=== PATIENT | male | born 1950 | race Caucasian/White ===

== ENCOUNTER 2016-08-17 12:37 | Observation (INO) | payer BC ==
[2016-08-17] VITALS (8 sets, daily range): BP systolic 132–207; BP diastolic 65–90; PULSE 71–90; RESP 14–19; TEMP 98–98.4; O2SAT 96–98
[~2016-08-17] VITALS: Ht 182.9 cm; Wt 97.0 kg
--- NOTE | 2016-08-17 13:04 | PD ---
HPI Chief Complaint: Hypertension Time Seen by Provider: 13:04 Travel History International Travel<30 days: No Contact w/Intl Traveler<30days: No Traveled to known affect area: No History of Present Illness HPI 66-year-old male with history of chest congestion and tingling for the past 2 days. Patient is noted his blood pressure be elevated. Patient states he generally feels unwell, but denies shortness of breath, chest pain, nausea, vomiting, or diarrhea. He denies fever or chills. Patient has a history of hypertension currently treated with metoprolol 50 mg twice a day as well as BID. Patient states history of stress test with heart catheterization approximately 10 years ago with no signs of cardiac or area disease. Patient denies other recent changes other than recent dental work with abscess treated yesterday by his dentist. Root canal and post was removed with drainage of abscess beneath. Patient has no known drug allergies. PFSH Past Medical History Cardiovascular Problems: Yes Social History Alcohol Use: Yes Tobacco Use: No Substance Use: No Allergies-Medications (Allergen,Severity, Reaction): Coded Allergies: No Known Allergies (Unverified , 08/17/16) Reported Meds & Prescriptions Reported Meds & Active Scripts Active Reported Xanax (Alprazolam) 0.25 Mg Tab 0.25 Mg PO Q8H PRN Aspirin 81 Mg Chew 81 Mg CHEW DAILY Meloxicam 7.5 Mg Tab 7.5 Mg PO DAILY Ramipril 10 Mg Cap 10 Mg PO BID Metoprolol Tartrate 50 Mg Tab 50 Mg PO BID Review of Systems Except as stated in HPI: all other systems reviewed are Neg General / Constitutional: No: Fever, Chills Eyes: No: Visual changes HENT: No: Headaches Cardiovascular: Positive: Chest Pain or Discomfort (see history present illness.), No: Palpitations, Irregular Rhythm, Tachycardia, Diaphoresis, Syncope, Dyspnea on exertion, Edema, Claudication Respiratory: No: Cough, Shortness of Breath, Wheezing Gastrointestinal: No: Nausea, Vomiting, Diarrhea, Abdominal Pain Genitourinary: No: Dysuria Musculoskeletal: No: Pain Skin: No Rash Neurologic: No: Weakness Psychiatric: No: Depression Endocrine: No: Polydipsia Hematologic/Lymphatic: No: Easy Bruising Physical Exam Narrative GENERAL: Patient appears mildly anxious but no acute distress. SKIN: Warm and dry. Normal color. Normal turgor. No diaphoresis. HEAD: Atraumatic. Normocephalic. EYES: Pupils equal and round. No scleral icterus. No injection or drainage. ENT: No nasal bleeding or discharge. Mucous membranes pink and moist. NECK: Trachea midline. No JVD. CARDIOVASCULAR: Regular rate and rhythm. No murmurs gallops or rubs appreciated. RESPIRATORY: No accessory muscle use. Clear to auscultation. Breath sounds equal bilaterally. MUSCULOSKELETAL: Extremities without clubbing, cyanosis, or edema. No obvious deformities. NEUROLOGICAL: Awake and alert. No obvious cranial nerve deficits. Motor grossly within normal limits. Five out of 5 muscle strength in the arms and legs. Normal speech. PSYCHIATRIC: Appropriate mood and affect; insight and judgment normal. Data Data Last Documented VS Vital Signs Date Time Temp Pulse Resp B/P Pulse Ox O2 Delivery O2 Flow Rate FiO2 08/17/16 13:43 96 08/17/16 13:43 Room Air 08/17/16 13:43 71 16 153/65 08/17/16 12:39 98.1 Orders Electrocardiogram (08/17/16 12:46) Comprehensive Metabolic Panel (08/17/16 13:13) Magnesium (Mg) (08/17/16 13:13) Prothrombin Time / Inr (Pt) (08/17/16 13:13) Act Partial Throm Time (Ptt) (08/17/16 13:13) Troponin I (08/17/16 13:13) Chest, Single Ap (08/17/16 13:13) Ecg Monitoring (08/17/16 13:13) Bilateral Bp Monitoring (08/17/16 13:13) Iv Access Insert/Monitor (08/17/16 13:13) Oximetry (08/17/16 13:13) Oxygen Administration (08/17/16 13:13) Aspirin Chew (Aspirin Chew) (08/17/16 13:15) Nitroglycerin 2% Oint (Nitroglycerin 2% (08/17/16 13:15) Sodium Chloride 0.9% Flush (Ns Flush) (08/17/16 13:15) Hydralazine Inj (Apresoline Inj) (08/17/16 13:15) Complete Blood Count With Diff (08/17/16 13:13) Admit Order (Ed Use Only) (1/26/17 14:29) Labs Laboratory Tests Test 08/17/16 13:26 White Blood Count 6.7 TH/MM3 Red Blood Count 4.87 MIL/MM3 Hemoglobin 16.1 GM/DL Hematocrit 45.8 % Mean Corpuscular Volume 93.9 FL Mean Corpuscular Hemoglobin 33.1 PG Mean Corpuscular Hemoglobin 35.2 % Concent Red Cell Distribution Width 12.5 % Platelet Count 284 TH/MM3 Mean Platelet Volume 7.6 FL Neutrophils (%) (Auto) 68.5 % Lymphocytes (%) (Auto) 20.6 % Monocytes (%) (Auto) 9.1 % Eosinophils (%) (Auto) 1.0 % Basophils (%) (Auto) 0.8 % Neutrophils # (Auto) 4.6 TH/MM3 Lymphocytes # (Auto) 1.4 TH/MM3 Monocytes # (Auto) 0.6 TH/MM3 Eosinophils # (Auto) 0.1 TH/MM3 Basophils # (Auto) 0.1 TH/MM3 CBC Comment DIFF FINAL Differential Comment Prothrombin Time 10.7 SEC Prothromb Time International 1.0 RATIO Ratio Activated Partial 27.5 SEC Thromboplast Time Sodium Level 137 MEQ/L Potassium Level 4.4 MEQ/L Chloride Level 102 MEQ/L Carbon Dioxide Level 24.9 MEQ/L Anion Gap 10 MEQ/L Blood Urea Nitrogen 22 MG/DL Creatinine 1.17 MG/DL Estimat Glomerular Filtration 63 ML/MIN Rate Random Glucose 117 MG/DL Calcium Level 8.9 MG/DL Magnesium Level 2.3 MG/DL Total Bilirubin 0.5 MG/DL Aspartate Amino Transf 19 U/L (AST/SGOT) Alanine Aminotransferase 35 U/L (ALT/SGPT) Alkaline Phosphatase 66 U/L Troponin I LESS THAN 0.02 NG/ML Total Protein 7.4 GM/DL Albumin 4.2 GM/DL [facility] Medical Decision Making Medical Screen Exam Complete: Yes Emergency Medical Condition: Yes Differential Diagnosis Hypertensive crisis. Cardiac syndrome. Non-STEMI. Narrative Course Patient appears medically stable at time of exam. Patient is discussed with Dr. Gomes who also reviewed the EKG. EKG shows normal sinus rhythm with lateral T-wave inversions. Labs ordered including CBC, CMP, cardiac panel, PT PTT and INR. Chest x-ray is ordered. IV access is obtained patient is given 10 mg hydralazine IV per Dr. Gomes. Patient is given 324 mg aspirin by mouth as well as 1 inch nitroglycerin paste topically. 1345 hrs. the patient is reassessed and his blood pressures improved to 153/68. Patient feels improved. Labs are still pending. 1430 hrs. patient's troponin is less than 0.02. Patient will be admitted to the chest pain center for observation and further evaluation. Diagnosis Primary Impression: Hypertension Qualified Code: I10 - Essential hypertension Additional Impression: Chest tightness or pressure Admitting Information Admitting Physician Requests: Observation Condition: Stable José Miguel Rosas Aug 17, 2016 13:04
[2016-08-17] MEDS ORDERED: ASPIRIN 81 MG CHEW TAB PO ONE (13:15)
[2016-08-17] MEDS ORDERED: SODIUM CHLORIDE 0.9% FLUSH 5 ML FLUSH IVF PRN ×2 (13:15→15:30)
[2016-08-17] MEDS ORDERED: hydrALAZINE HCL 20 MG/ML VIAL IV PUSH ONE (13:15)
[2016-08-17] MEDS ORDERED: NITROGLYCERIN 2% OINT 1 GM PACKET TOP ONE (13:15)
[2016-08-17] MEDS ORDERED: MELO7.5T4 PO (13:16)
[2016-08-17] MEDS ORDERED: METO50TA PO (13:16)
[2016-08-17] MEDS ORDERED: RAMI10CA PO (13:16)
[2016-08-17] MEDS ORDERED: ASPI81CH CHEW (13:16)
[2016-08-17] MEDS ORDERED: ALPR.25 PO (13:16)
[2016-08-17 13:38] LABS: AUTOMATED NEUTROPHIL # 4.6 TH/MM3 (1.8-7.7); BASOPHIL # 0.1 TH/MM3 (0-0.2); BASOPHIL % 0.8 % (0.0-2.0); EOSINOPHIL # 0.1 TH/MM3 (0-0.4); HEMATOCRIT 45.8 % (39.0-51.0); HEMO FLAGS DIFF FINAL; LYMPH % 20.6 % (9.0-44.0); LYMPHOCYTE # 1.4 TH/MM3 (1.0-4.8); MEAN CELL VOLUME 93.9 FL (80.0-100.0); MEAN CORPUSCULAR HEMOGLOBIN 33.1 PG (27.0-34.0); MEAN CORPUSCULAR HGB CONC 35.2 % (32.0-36.0); MONO % 9.1 % (0.0-8.0); NEUT % 68.5 % (16.0-70.0); PLATELET COUNT 284 TH/MM3 (150-450); RED BLOOD COUNT 4.87 MIL/MM3 (4.50-5.90); RED CELL DISTRIBUTION WIDTH 12.5 % (11.6-17.2); WHITE BLOOD COUNT 6.7 TH/MM3 (4.0-11.0)
[2016-08-17 13:47] LABS: APTT (PATIENT) 27.5 SEC (24.3-30.1); PROTHROMBIN TIME - PATIENT 10.7 SEC (9.8-11.6)
[2016-08-17 13:56] LABS: ANION GAP 10 MEQ/L (5-15); AST (GOT) 19 U/L (15-37); BICARBONATE 24.9 MEQ/L (21.0-32.0); BLOOD UREA NITROGEN 22 MG/DL (7-18); CHLORIDE 102 MEQ/L (98-107); GLOMERULAR FILTRATION RATE 63 ML/MIN (>89); MAGNESIUM 2.3 MG/DL (1.5-2.5); POTASSIUM 4.4 MEQ/L (3.5-5.1); SODIUM (NA) 137 MEQ/L (136-145)
--- NOTE | 2016-08-17 13:56 | RADRPT ---
EXAM DATE/TIME: 08/17/2016 13:37 [facility] COMPARISON: No previous studies available for comparison. INDICATIONS : Shortness of breath. MEDICAL HISTORY : Hypertension. SURGICAL HISTORY : None. ENCOUNTER: Initial ACUITY: 1 day PAIN SCORE: 0/10 LOCATION: Bilateral chest FINDINGS: A single view of the chest demonstrates the lungs to be symmetrically aerated without evidence of mas s, infiltrate or effusion. The cardiomediastinal contours are unremarkable. Osseous structures are intact. CONCLUSION: 1. No acute cardiopulmonary findings. Koby Bowie MD on August 17, 2016 at 13:54 Board Certified Radiologist. This report was verified electronically.
[2016-08-17 14:01] LABS: ALKALINE PHOSPHATASE 66 U/L (45-117); ALT (GPT) 35 U/L (12-78); TOTAL BILIRUBIN ADULT 0.5 MG/DL (0.2-1.0)
[2016-08-17] MEDS ORDERED: ONDANSETRON HCL 4 MG/2 ML VIAL IV PRN (15:30)
[2016-08-17] MEDS ORDERED: ACETAMINOPHEN/HYDROcodone 325 MG/7.5 MG TAB PO PRN (15:30)
[2016-08-17] MEDS ORDERED: ALPRAZolam 0.25 MG TAB PO PRN (15:30)
[2016-08-17] MEDS ORDERED: amLODIPine BESYLATE 5 MG TAB PO ONE (15:45)
[2016-08-17] MEDS: PANTOPRAZOLE SOD 40 MG DELAYED RELEASE TAB PO SCH (16:26)
[2016-08-17 17:27] LABS: CREATINE KINASE 59 U/L (39-308)
[2016-08-17] MEDS: ACETAMINOPHEN 500 MG CPLT PO PRN ×2 (20:22→23:48)
[2016-08-17] MEDS: SODIUM CHLORIDE 0.9% FLUSH 5 ML FLUSH IVF SCH (20:22)
[2016-08-17] MEDS: RAMIPRIL 5 MG CAP PO SCH (20:25)
[2016-08-17 20:44] LABS: CREATINE KINASE 55 U/L (39-308)
[2016-08-17] MEDS ORDERED: METOPROLOL TARTRATE 50 MG TAB PO SCH (21:00)
[2016-08-18] VITALS: BP_SYST 130; BP_SYST 132; BP_DIAS 68; PULSE 67; RESP 18; TEMP 98.7; O2SAT 97
[2016-08-18 00:29] VITALS: PULSE 74
[2016-08-18 04:21] VITALS: PULSE 87
[2016-08-18 04:58] VITALS: BP 127/60; PULSE 72; RESP 19; TEMP 97.7; O2SAT 100
[2016-08-18] MEDS: ACETAMINOPHEN 500 MG CPLT PO PRN (05:03)
[2016-08-18 07:12] VITALS: BP 156/70; PULSE 77; RESP 20; O2SAT 95
[2016-08-18] MEDS ORDERED: AMLO5TAB2 PO (07:12)
--- NOTE | 2016-08-18 07:12 | HHI.DCPOC ---
Discharge Care Plan Diagnosis: (1) Hypertension Goals to Promote Your Health * To prevent worsening of your condition and complications * To maintain your health at the optimal level Directions to Meet Your Goals Take your medications as prescribed Follow your dietary instruction Follow activity as directed Keep your appointments as scheduled Take your immunizations and boosters as scheduled If your symptoms worsen call your PCP, if no PCP go to Urgent Care Center or Emergency Room Smoking is Dangerous to Your Health. Avoid second hand smoke Call the 24-hour hour crisis hotline for domestic abuse at Zafar Farr Aug 18, 2016 07:12
[2016-08-18] MEDS ORDERED: MELOXICAM 7.5 MG TAB PO SCH (09:00)
[2016-08-18] MEDS ORDERED: ASPIRIN 325 MG TAB PO SCH (09:00)
[2016-08-18] MEDS: SODIUM CHLORIDE 0.9% FLUSH 5 ML FLUSH IVF SCH (09:42)
[2016-08-18] MEDS: RAMIPRIL 5 MG CAP PO SCH (09:42)
[2016-08-18] MEDS: PANTOPRAZOLE SOD 40 MG DELAYED RELEASE TAB PO SCH (09:42)
--- NOTE | 2016-08-18 10:28 | MH ---
cc: OSIEL KEMP MD DATE OF ADMISSION 08/17/2016 CHIEF COMPLAINT Hypertension. HISTORY OF PRESENT ILLNESS This is a 66 year old male who has history of hypertension that presented to the ED complaining of elevated blood pressure. The patient states he can always tell when his blood pressure is high. He states that he had an odd sensation across his shoulders and a pressure in the back of his head and a little bit of dizziness. He states when he has these type of symptoms it usually means his blood pressures is high. He came to the ER and it was elevated. He states he has been dealing with these sensations the last three or four days. He has no shortness of breath. No nausea or diaphoresis. Denies any type of chest discomfort. He states he has no heart disease. He states he had an attempted stress test 10 or [address] Saleh but was not able to complete it secondary to his back issues and subsequently ended up having heart catheterization. He states that he was told that his coronary arteries were normal at that time. PAST MEDICAL HISTORY 1. Hypertension, 2. Chronic back pain, 3. Renal cell carcinoma with partial right nephrectomy in 2013 secondary to that. States there has been no recurrence. He denies hyperlipidemia, diabetes, CAD. FAMILY HISTORY Denies any history of CAD. SOCIAL HISTORY The patient was smoking cigarettes a couple years ago. Prior to that he smoked an average of three cigars a day for 10 years and prior to that he smoked about a pack and a half of cigarettes a day for 25 years. He also averages three cocktails a day. He does smoke marijuana occasionally, last used was about two weeks ago. PAST SURGICAL HISTORY 1. Bilateral hernia repair, 2. Partial right nephrectomy secondary to renal cell carcinoma 3. Heart catheterization without intervention. 4. Left hip replacement, 5. Tonsillectomy ALLERGIES No known drug allergies. MEDICATIONS 1. Metoprolol tartrate 50 mg twice daily 2. Ramipril 10 mg twice daily. 3. Aspirin 81 mg daily. 4. Meloxicam 7.5 mg daily. 5. Xanax 0.25 mg q 6 hrs p.r.n. anxiety which he states he rarely takes. REVIEW OF SYSTEMS GENERAL: Denies fevers or chills. Denies recent illnesses. HEENT: He does complain of discomfort in the back of his head. He states he always gets it when his blood pressure elevates. Denies visual change. Denies earache, sore throat, difficulty spine. CARDIOVASCULAR: Denies chest discomforts. Denies sensation of heart beating rapidly or irregularly. Denies syncope. Denies diaphoresis. RESPIRATORY: Denies shortness of breath or inspirational chest discomfort. Denies coughing, wheezing or hemoptysis. GI: Denies nausea, vomiting, diarrhea, abdominal pain or blood in stool. MUSCULOSKELETAL: Denies joint pain or edema. Denies calf pain or edema. Does complain of chronic back pain. NEUROMUSCULAR: He does complain of headache as mentioned above. He also felt a little dizzy. Denies numbness, tingling in extremities. ENDOCRINE: Denies polyuria or polydipsia: HEMATOLOGIC: Denies bruising. SKIN: Denies rash or itching. PHYSICAL EXAMINATION VITAL SIGNS: In the emergency department initially included a blood pressure ___/90, heart rate 75, respiration 14, pulse oximetry 98% on room air and he was afebrile. Most recent vital signs include blood pressure 165/78, heart rate was 90, respirations 18, pulse oximetry 97% on room air and he is afebrile. GENERAL: The patient is seen in the examination room in no apparent stress. He is pleasant. He speaks in clear and complete sentences. HEENT: Head is atraumatic, normocephalic. NECK: Supple without lymphadenopathy and trachea is midline. No JVD or carotid bruits. CARDIOVASCULAR: Regular rate and rhythm without murmur, gallop or rub. LUNGS: Clear to auscultation bilaterally. No wheezing, rales or rhonchi. No reproducible chest wall discomfort. No use of accessory muscles. GI: Abdomen is nontender, nondistended and bowel sounds are normal. No guarding or rebound. No obvious pulsatile mass or bruit. No CVA tenderness. Strong femoral pulses bilaterally. MUSCULOSKELETAL: The patient is moving upper and lower extremities freely. No joint tenderness or edema. No calf tenderness or edema, no Homans' sign. Strong pulses in upper and lower extremities. NEUROVASCULAR: The patient is alert and oriented. Cranial II-XII grossly intact. No focal deficits and speech is clear. SKIN: No rash and turgor is normal. LABORATORY DATA CBC is unremarkable. Coagulation studies unremarkable. Complete metabolic panel has glucose mildly elevated at 117. GFR decreased or low at 63. BUN mild at 20. First of cardiac enzymes normal. IMAGING STUDIES Single view chest x-ray read by radiologist as no acute cardiopulmonary findings. CARDIOLOGY STUDIES EKG - initial EKG is sinus rhythm with nonspecific lateral ST-T changes. ASSESSMENT 1. Hypertension. The patient will have serial cardiac enzymes and EKGs for ruling out purposes. He has been seen by Dr. Osiel Kemp of cardiology in the chest pain center. We will hold his metoprolol tartrate and start Amlodipine and continue to see how he does and also continue his ramipril. If his blood pressure is better overnight, we will discharge him with the same medications and have him follow up with his primary care physician. The patient has requested to follow up with Dr. Kemp also to help with his blood pressure management and he certainly can do that as well. The patient is stable at this time. He is agreeable to this plan. Dictated by USAMA Walter MD DALY Ornelas/ /4:56 PM /10:26 AM
--- NOTE | 2016-08-18 15:20 | EKG ---
Date Performed: 08/17/2016 Time Performed: 19:54:16 PTAGE: 66 years EKG: Sinus rhythm NONSPECIFIC ST & T-WAVE ABNORMALITY BORDERLINE ECG PREVIOUS TRACING : 08/17/2016 16.37 Since previous tracing, no significant change noted DOCTOR: Osiel Arteaga Interpretating Date/Time 08/18/2016 15:18:58
--- NOTE | 2016-08-18 15:20 | EKG ---
Date Performed: 08/17/2016 Time Performed: 16:37:12 PTAGE: 66 years EKG: Sinus rhythm NONSPECIFIC ST & T-WAVE ABNORMALITY BORDERLINE ECG PREVIOUS TRACING : 08/17/2016 12.52 Since previous tracing, no significant change noted DOCTOR: Osiel Arteaga Interpretating Date/Time 08/18/2016 15:19:44
--- NOTE | 2016-08-18 15:22 | EKG ---
Date Performed: 08/17/2016 Time Performed: 12:50:06 PTAGE: 66 years EKG: Sinus rhythm ST DEVIATION AND MODERATE T-WAVE ABNORMALITY, CONSIDER LATERAL ISCHEMIA ABNORMAL ECG NO PREVIOUS TRACING DOCTOR: Osiel Arteaga Interpretating Date/Time 09/26/2016 07:37:31
== END 2016-08-18 10:31 | disposition home or self-care (01) ==
LOC: NEPC 12:37 → NEDA 14:32 → NEPGCP 16:08
PROVIDERS: ADMIT Internal Medicine Cardiovascular Disease; ATTEND Internal Medicine Cardiovascular Disease
DX: R07.9 Chest pain, unspecified (principal); I10 Essential (primary) hypertension; R94.31 Abnormal electrocardiogram [ECG] [EKG]; C64.1 Malignant neoplasm of right kidney, except renal pelvis; Z90.5 Acquired absence of kidney; Z87.891 Personal history of nicotine dependence; Z96.642 Presence of left artificial hip joint
CPT/HCPCS: 71010; 80053; 82550; 83735; 84484; 85025; 85610; 85730; 93005; 96374; 99285; G0378; J0360

== ENCOUNTER 2017-01-05 06:20 | Observation (INO) | payer BC ==
[2017-01-05] VITALS (10 sets, daily range): BP systolic 132–203; BP diastolic 67–99; PULSE 85–119; RESP 16–20; TEMP 98–98.2; O2SAT 96–100
[~2017-01-05] VITALS: Ht 182.9 cm; Wt 97.0 kg
[~2017-01-05 06:20] MED LIST: ALPR.25 PO; AMLO5TAB2 PO; ASPI81CH CHEW; MELO7.5T4 PO; RAMI10CA PO
[2017-01-05] MEDS ORDERED: MORPHINE SULFATE 4 MG/ML INJ IV PUSH ONE (07:00)
[2017-01-05] MEDS ORDERED: SODIUM CHLORIDE 0.9% FLUSH 10 ML FLUSH IVF PRN (07:00)
[2017-01-05] MEDS ORDERED: SODIUM CHLORID 0.9% 500 ML INJ 500 ML IV ONE (07:00)
[2017-01-05] MEDS ORDERED: ASPIRIN 325 MG TAB PO ONE (07:00)
--- NOTE | 2017-01-05 07:00 | PD ---
HPI Chief Complaint: Respiratory Symptoms Time Seen by Provider: 06:50 Travel History International Travel<30 days: No Contact w/Intl Traveler<30days: No Traveled to known affect area: No History of Present Illness HPI The patient 66 years old. He arrives complaining of shortness of breath and mild chest tightness. He describes a sensation of an elevated resting pulse. He describes a "fluttering" sensation in the chest. He has a history of hypertension. He denies diabetes and hyperlipidemia. He quit smoking tobacco 2 years ago. He has no family history of coronary artery disease. He notes that after lunch in the afternoons while he works and is discharged be becomes short of breath and this leads to a sensation of mild chest tightness. He said no fever or cough. There is no pleuritic chest pain. Last night he ate a 14 ounce rib eye steak and reports severe belching last night and this morning. He follows with Dr Arteaga of cardiology. [facility] Past Medical History Arthritis: Yes Anxiety: Yes Cardiac Catheterization: Yes Cardiovascular Problems: Yes High Cholesterol: No Congestive Heart Failure: No Diabetes: No Hypertension: Yes Influenza Vaccination: No Past Surgical History Abdominal Surgery: Yes (HERNIA) Coronary Artery Bypass Graft: No Genitourinary Surgery: Yes (PARTIAL KIDNEY REMOVAL) Tonsillectomy: Yes Social History Alcohol Use: Yes (DAILY 3 DRINKS) Tobacco Use: No Substance Use: No Allergies-Medications (Allergen,Severity, Reaction): Coded Allergies: No Known Allergies (Unverified , 08/17/16) Reported Meds & Prescriptions Reported Meds & Active Scripts Active Amlodipine (Amlodipine Besylate) 5 Mg Tab 5 Mg PO DAILY Reported Aspirin 81 Mg Chew 81 Mg CHEW DAILY Meloxicam 7.5 Mg Tab 7.5 Mg PO DAILY Ramipril 10 Mg Cap 10 Mg PO BID Review of Systems Except as stated in HPI: all other systems reviewed are Neg General / Constitutional: No: Fever Physical Exam Narrative GENERAL: 66 yo M, WNWD, NAD SKIN: Warm and dry. HEAD: Atraumatic. Normocephalic. EYES: Pupils equal and round. No scleral icterus. No injection or drainage. ENT: No nasal bleeding or discharge. Mucous membranes pink and moist. NECK: Trachea midline. No JVD. CARDIOVASCULAR: Regular rate and rhythm. RESPIRATORY: No accessory muscle use. Clear to auscultation. Breath sounds equal bilaterally. GASTROINTESTINAL: Abdomen soft, non-tender, nondistended. Hepatic and splenic margins not palpable. MUSCULOSKELETAL: Extremities without clubbing, cyanosis, or edema. No obvious deformities. NEUROLOGICAL: Awake and alert. No obvious cranial nerve deficits. Motor grossly within normal limits. Five out of 5 muscle strength in the arms and legs. Normal speech. PSYCHIATRIC: Appropriate mood and affect; insight and judgment normal. Data Data Last Documented VS Vital Signs Date Time Temp Pulse Resp B/P Pulse Ox O2 Delivery O2 Flow Rate FiO2 01/05/17 06:36 114 16 203/91 99 Room Air 01/05/17 06:25 98.2 VS reviewed Orders Electrocardiogram (01/05/17 06:50) Basic Metabolic Panel (Bmp) (01/05/17 06:50) Ckmb (Isoenzyme) Profile (01/05/17 06:50) Complete Blood Count With Diff (01/05/17 06:50) Magnesium (Mg) (01/05/17 06:50) Prothrombin Time / Inr (Pt) (01/05/17 06:50) Act Partial Throm Time (Ptt) (01/05/17 06:50) Troponin I (01/05/17 06:50) Chest, Single Ap (01/05/17 06:50) Ecg Monitoring (01/05/17 06:50) Bilateral Bp Monitoring (01/05/17 06:50) Iv Access Insert/Monitor (01/05/17 06:50) Oximetry (01/05/17 06:50) Oxygen Administration (01/05/17 06:50) Aspirin (Aspirin) (01/05/17 07:00) Morphine Inj (Morphine Inj) (01/05/17 07:00) Sodium Chloride 0.9% Flush (Ns Flush) (01/05/17 07:00) Nitroglycerin 0.4 Mg Q5m X3 (01/05/17 07:00) Metoprolol 5 Mg Ivs Q5m X3 (01/05/17 07:00) Sodium Chlorid 0.9% 500 Ml Inj (Ns 500 M (01/05/17 07:00) MDM Medical Decision Making Medical Screen Exam Complete: Yes Emergency Medical Condition: Yes Medical Record Reviewed: Yes Differential Diagnosis NSTEMI, unstable angina, coronary vasospasm, PE, PTX, aortic dissection, pericarditis, myocarditis, endocarditis, PNA, esophageal disease, aneurysm, musculoskeletal etiologies, anxiety, cocaine/sympathomimetic abuse Narrative Course EKG reveals a sinus rhythm of 104, ST changes are noted in the lateral precordial leads; TWI in I and aVL appear new Chest pain labs ordered at time of dictation. d/w oncoming provider at 700AM. Koby Underwood MD Jan 05, 2017 07:00
[2017-01-05] MEDS: NITROGLYCERIN 0.4 MG SL 25 TABS/BTL SL SCH ×2 (07:05→07:10)
[2017-01-05] MEDS: METOPROLOL TARTRATE 5 MG/5 ML VIAL IVS SCH ×3 (07:05→07:10)
[2017-01-05 07:10] LABS: AUTOMATED NEUTROPHIL # 5.2 TH/MM3 (1.8-7.7); BASOPHIL % 0.5 % (0.0-2.0); EOSINOPHIL # 0.1 TH/MM3 (0-0.4); EOSINOPHIL % 1.4 % (0.0-4.0); HEMATOCRIT 45.8 % (39.0-51.0); HEMO FLAGS DIFF FINAL; LYMPH % 21.9 % (9.0-44.0); LYMPHOCYTE # 1.7 TH/MM3 (1.0-4.8); MEAN CELL VOLUME 93.1 FL (80.0-100.0); MEAN CORPUSCULAR HEMOGLOBIN 32.6 PG (27.0-34.0); NEUT % 67.2 % (16.0-70.0); PLATELET COUNT 276 TH/MM3 (150-450); RED BLOOD COUNT 4.92 MIL/MM3 (4.50-5.90); RED CELL DISTRIBUTION WIDTH 12.3 % (11.6-17.2); WHITE BLOOD COUNT 7.7 TH/MM3 (4.0-11.0)
[2017-01-05 07:14] LABS: APTT (PATIENT) 27.7 SEC (24.3-30.1); PROTHROMBIN TIME - PATIENT 10.5 SEC (9.8-11.6)
--- NOTE | 2017-01-05 07:23 | RADRPT ---
EXAM DATE/TIME: 01/05/2017 07:21 [facility] COMPARISON: CHEST SINGLE AP, August 17, 2016, 13:37. INDICATIONS : Chest pain, short of breath. MEDICAL HISTORY : Hypertension. SURGICAL HISTORY : None. ENCOUNTER: Initial ACUITY: 1 day PAIN SCORE: 5/10 LOCATION: Bilateral chest FINDINGS: A single view of the chest demonstrates the lungs to be symmetrically aerated without evidence of mas s, infiltrate or effusion. The cardiomediastinal contours are unremarkable. Osseous structures are intact. CONCLUSION: 1. No acute cardiopulmonary disease. Andrei Mata MD on January 05, 2017 at 7:20 Board Certified Radiologist. This report was verified electronically.
[2017-01-05 07:29] LABS: ANION GAP 8 MEQ/L (5-15); BICARBONATE 24.5 MEQ/L (21.0-32.0); BLOOD UREA NITROGEN 19 MG/DL (7-18); CHLORIDE 105 MEQ/L (98-107); GLOMERULAR FILTRATION RATE 70 ML/MIN (>89); MAGNESIUM 2.4 MG/DL (1.5-2.5); POTASSIUM 3.7 MEQ/L (3.5-5.1); SODIUM (NA) 137 MEQ/L (136-145)
[2017-01-05 07:34] LABS: CREATINE KINASE 85 U/L (39-308)
--- NOTE | 2017-01-05 09:39 | PD ---
Physical Exam Date Seen by Provider: Jan 05, 2017 Time Seen by Provider: 09:37 Narrative 66-year-old male came to the emergency room with history of ongoing issue but progressively worsening chest tightness along with shortness of breath and fluctuating blood pressure. Patient was seen by the previous ER physician. Please refer to his notes for history and physical. I spoke with the patient and his at length. They are extremely concerned about the symptoms. Patient says that he is usually healthy and has never had issues with his blood pressure mood but recently he has noticed that the symptoms have been very incapacitating. He has never had a stress test. Patient has been smoker for a very long time but quit 2 years ago. His blood pressure has been fluctuating in spite of being on medications. Blood test results were back and within normal limit. I added a d-dimer to rule out any PE since patient has done some long distance travel recently as well as history in the past for renal cell carcinoma. However d-dimer was within normal range. At this point I have offered them to be admitted to chest pain center and at the highway patrol officer's discretion a stress test. They're highly agreeable to that plan. Patient does seem quite anxious as well. Data Data Last Documented VS Vital Signs Date Time Temp Pulse Resp B/P Pulse Ox O2 Delivery O2 Flow Rate FiO2 01/05/17 08:55 89 18 163/75 97 Room Air 01/05/17 06:25 98.2 Orders Electrocardiogram (01/05/17 06:50) Basic Metabolic Panel (Bmp) (01/05/17 06:50) Ckmb (Isoenzyme) Profile (01/05/17 06:50) Complete Blood Count With Diff (01/05/17 06:50) Magnesium (Mg) (01/05/17 06:50) Prothrombin Time / Inr (Pt) (01/05/17 06:50) Act Partial Throm Time (Ptt) (01/05/17 06:50) Troponin I (01/05/17 06:50) Chest, Single Ap (01/05/17 06:50) Ecg Monitoring (01/05/17 06:50) Bilateral Bp Monitoring (01/05/17 06:50) Iv Access Insert/Monitor (01/05/17 06:50) Oximetry (01/05/17 06:50) Oxygen Administration (01/05/17 06:50) Aspirin (Aspirin) (01/05/17 07:00) Morphine Inj (Morphine Inj) (01/05/17 07:00) Sodium Chloride 0.9% Flush (Ns Flush) (01/05/17 07:00) Nitroglycerin Sl (Nitrostat Sl) (01/05/17 07:00) Metoprolol Tartrate Inj (Lopressor Inj) (01/05/17 07:00) Sodium Chlorid 0.9% 500 Ml Inj (Ns 500 M (01/05/17 07:00) D-Dimer (01/05/17 08:32) Admit Order (Ed Use Only) (01/05/17 09:34) Labs Laboratory Tests Test 01/05/17 06:40 White Blood Count 7.7 TH/MM3 Red Blood Count 4.92 MIL/MM3 Hemoglobin 16.0 GM/DL Hematocrit 45.8 % Mean Corpuscular Volume 93.1 FL Mean Corpuscular Hemoglobin 32.6 PG Mean Corpuscular Hemoglobin 35.0 % Concent Red Cell Distribution Width 12.3 % Platelet Count 276 TH/MM3 Mean Platelet Volume 7.7 FL Neutrophils (%) (Auto) 67.2 % Lymphocytes (%) (Auto) 21.9 % Monocytes (%) (Auto) 9.0 % Eosinophils (%) (Auto) 1.4 % Basophils (%) (Auto) 0.5 % Neutrophils # (Auto) 5.2 TH/MM3 Lymphocytes # (Auto) 1.7 TH/MM3 Monocytes # (Auto) 0.7 TH/MM3 Eosinophils # (Auto) 0.1 TH/MM3 Basophils # (Auto) 0.0 TH/MM3 CBC Comment DIFF FINAL Differential Comment Prothrombin Time 10.5 SEC Prothromb Time International 1.0 RATIO Ratio Activated Partial 27.7 SEC Thromboplast Time D-Dimer Quantitative (PE/DVT) 0.45 MG/L FEU Sodium Level 137 MEQ/L Potassium Level 3.7 MEQ/L Chloride Level 105 MEQ/L Carbon Dioxide Level 24.5 MEQ/L Anion Gap 8 MEQ/L Blood Urea Nitrogen 19 MG/DL Creatinine 1.07 MG/DL Estimat Glomerular Filtration 70 ML/MIN Rate Random Glucose 142 MG/DL Calcium Level 9.0 MG/DL Magnesium Level 2.4 MG/DL Total Creatine Kinase 85 U/L Troponin I LESS THAN 0.02 NG/ML MDM Supervised Visit with TUSHAR: No Diagnosis Primary Impression: Chest pain Qualified Code: R07.9 - Chest pain, unspecified type Additional Impression: Palpitation Admitting Information Admitting Physician Requests: Observation Dennys Huggins MD Jan 05, 2017 09:39
[2017-01-05] MEDS ORDERED: NITROGLYCERIN 0.4 MG SL 25 TABS/BTL SL PRN (10:00)
[2017-01-05] MEDS ORDERED: ONDANSETRON HCL 4 MG/2 ML VIAL IV PRN (10:00)
[2017-01-05] MEDS ORDERED: SODIUM CHLORIDE 0.9% FLUSH 10 ML FLUSH IV FLUSH PRN (10:00)
[2017-01-05] MEDS ORDERED: ACETAMINOPHEN 500 MG CPLT PO PRN (10:00)
[2017-01-05 10:59] LABS: CREATINE KINASE 79 U/L (39-308)
[2017-01-05] MEDS ORDERED: ALPRAZolam 0.5 MG TAB PO ONE (11:00)
--- NOTE | 2017-01-05 13:16 | HHI.HP ---
[facility] Primary Care Physician Inna Yeager M.D. Chief Complaint Chest tightness History of Present Illness 66-year-old male with history of hypertension, renal cancer, chronic neck pain, and arthritis presents to emergency room for further evaluation of chest tightness. Onset 34 weeks. States every morning he wakes up feeling fine but by the afternoon develop chest tightness and states "I don't feel like myself." Denies any chest pain or discomfort. Once chest tightness begins duration last into the evening. No associated symptoms of nausea, vomiting, or diaphoresis. No radiation. No known precipitating factors although states "I feel I cannot manage stress like I used to." No known precipitating factors. Reports fluctuating blood pressure and heart rate since Sunday. He has been taking a blood pressure and pulse log over the last few weeks. Highest reported occurred on Sunday with reports of BP 170/90 and heart rate 101. Review of Systems General: No fatigue,weakness, fever, chills, recent illness, or change in appetite HEENT: No LOVE, no vision changes, no nasal congestion or drainage, no dysphasia CV: As stated above. Denies any current chest tightness. No CP, pressure, palpitations, intermittent leg pain, dizziness RESP: No SOB, cough, wheeze, hemoptysis, asthma, COPD, or recent URI. GI: No nausea, vomiting, bowel changes, diarrhea, constipation. No unintentional weight gain or weight loss : No dysuria, urgency, frequency, or hematuria EXT: No lower leg edema, no paraesthesias MS: No discomfort or change in ROM NEURO: No change in memory, difficulty with balance, LOC, motor/sensory deficits PSYCH: Endorses he no longer tolerates stress as he used to. Feels all of his symptoms may be related to stress, although states he does not feel he has a stressful job or lifestyle. Does endorse his adds to his daily stress. No depression or suicidal ideation. SKIN: No rashes, no concerning lesions Past Family Social History Allergies: Coded Allergies: Morphine (Verified Allergy, Unknown, 01/05/17) Past Medical History Renal cancer, chronic neck and back pain, arthritis, hypertension Past Surgical History Partial nephrectomy, inguinal hernia repair, tonsillectomy Reported Medications Active Amlodipine (Amlodipine Besylate) 5 Mg Tab 5 Mg PO DAILY Aspirin 81 Mg Chew 81 Mg CHEW DAILY Meloxicam 7.5 Mg Tab 7.5 Mg PO DAILY Ramipril 10 Mg Cap 10 Mg PO BID Active Ordered Medications Current Medications Medications (Trade) Dose Ordered Sig/Sylwia Route Start Time Stop Time Status Last Admin (Tylenol) 500 mg Q4H PRN PO 01/05/17 10:00 (Zofran Inj) 4 mg Q6H PRN IV 01/05/17 10:00 (Nitrostat Sl) 0.4 mg Q5M PRN SL 01/05/17 10:00 (Aspirin) 325 mg DAILY PO 01/06/17 09:00 (Xanax) 0.5 mg ONCE ONCE PO 01/05/17 11:00 01/05/17 11:01 Family History Noncontributory for early onset cardiovascular disease. Social History Known hypertension. No known diabetes or hyperlipidemia. Quit smoking September 2014prior to quitting smoking 1 pack daily for most of his adult life. Endorses 45 alcohol drinks nightly. Occasionally will smoke marijuana. States he has acted however does not perform purposeful cardiovascular exercise. Past cardiac testing No recent stress testing. 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 Cardiac Catheterization at age 52. Was told his coronary arteries were all "completely normal." Physical Exam Vital Signs Vital Signs Date Time Temp Pulse Resp B/P Pulse Ox O2 Delivery O2 Flow Rate FiO2 01/05/17 11:34 98.0 85 18 162/76 96 01/05/17 11:03 92 18 162/72 99 Room Air 01/05/17 09:52 97 01/05/17 08:55 89 18 163/75 97 Room Air 01/05/17 08:02 85 18 148/67 97 Room Air 01/05/17 06:36 114 16 203/91 99 Room Air 01/05/17 06:25 98.2 119 18 140/99 100 Room Air Physical Exam GENERAL: Alert WN, WD, NAD, male HEAD: NC, AT EYES: Sclera clear, conjunctiva without injection, pupils equal and round ENT: Mucous membranes pink and moist NECK: Supple, no masses, trachea midline CV: RRR, without murmur, rub, gallop, no JVD, S1-S2 no S3-S4. RESP: Clear lungs throughout bilateral, no crackles, wheeze, rhonchi, symmetrical chest rise, nonlabored, able to speak in full sentences ABD: Soft, NT, ND, no masses, positive bowel tones BACK: No CVAT, no scoliosis EXT: Pulses +24, no dependent edema MS: Normal tone 4 extremities, nontender, no obvious deformities, full range of motion NEURO: CN II through CN XII grossly intact, motor strength 5/5, gait WNL PSYCH: A+O 3, flat affect, appropriate speech, appropriate mood and affect, insight and judgment SKIN: Normal turgor, normal texture, no lesions, no rashes, brisk cap refill, even hair distribution Laboratory Laboratory Tests Test 01/05/17 01/05/17 06:40 10:03 White Blood Count 7.7 Red Blood Count 4.92 Hemoglobin 16.0 Hematocrit 45.8 Mean Corpuscular Volume 93.1 Mean Corpuscular Hemoglobin 32.6 Mean Corpuscular Hemoglobin 35.0 Concent Red Cell Distribution Width 12.3 Platelet Count 276 Mean Platelet Volume 7.7 Neutrophils (%) (Auto) 67.2 Lymphocytes (%) (Auto) 21.9 Monocytes (%) (Auto) 9.0 Eosinophils (%) (Auto) 1.4 Basophils (%) (Auto) 0.5 Neutrophils # (Auto) 5.2 Lymphocytes # (Auto) 1.7 Monocytes # (Auto) 0.7 Eosinophils # (Auto) 0.1 Basophils # (Auto) 0.0 CBC Comment DIFF FINAL Differential Comment Prothrombin Time 10.5 Prothromb Time International 1.0 Ratio Activated Partial 27.7 Thromboplast Time D-Dimer Quantitative (PE/DVT) 0.45 Sodium Level 137 Potassium Level 3.7 Chloride Level 105 Carbon Dioxide Level 24.5 Anion Gap 8 Blood Urea Nitrogen 19 Creatinine 1.07 Estimat Glomerular Filtration 70 Rate Random Glucose 142 Calcium Level 9.0 Magnesium Level 2.4 Total Creatine Kinase 85 79 Troponin I LESS THAN 0.02 LESS THAN 0.02 Result Diagram: 01/05/17 0640 01/05/17 0640 Imaging Last Impressions Chest X-Ray 01/05/17 0650 Signed Impressions: Service Date/Time: Thursday, January 05, 2017 07:21 - CONCLUSION: 1. No acute cardiopulmonary disease. Andrei Mata MD Course EKG First EKG normal sinus rhythm, ST changes leads V4 through V6 Second EKG normal sinus rhythm, nonspecific T-wave changes Third EKG Assessment and Plan Assessment and Plan #1 Chest tightness-admitted to chest pain center. Will rule out with 3 sets of EKGs and cardiac enzymes prior to proceeding with Flor scan. Will monitor patient's heart rate and blood pressure overnight with plans for discharge in a.m. Patient agreeable to plan of care. Instructed to follow up with Dr. Arteaga for outpatient Holter monitor. #2 Hypertension-continue to monitor, continue ramipril and amlodipine #3 Anxiety-continue xanax 0.5mg given in ER every 6 hours when necessary. Encouraged him to speak with his PCP regarding his reported anxiety and concern over handling daily stressors. #4 Arthritiscontinue meloxicam Katey Powell Jan 05, 2017 13:16
[2017-01-05 14:16] LABS: CREATINE KINASE 73 U/L (39-308)
--- NOTE | 2017-01-05 14:20 | EKG ---
Date Performed: 01/05/2017 Time Performed: 13:19:58 PTAGE: 66 years EKG: Sinus rhythm NONSPECIFIC ST & T-WAVE ABNORMALITY BORDERLINE ECG PREVIOUS TRACING : 01/05/2017 10.01 Since previous tracing, ST changes ar emore prominent DOCTOR: Osiel Arteaga Interpretating Date/Time 01/05/2017 14:19:10
--- NOTE | 2017-01-05 14:22 | EKG ---
Date Performed: 01/05/2017 Time Performed: 10:01:31 PTAGE: 66 years EKG: Sinus rhythm NONSPECIFIC T-WAVE ABNORMALITY BORDERLINE ECG PREVIOUS TRACING : 01/05/2017 06.40 Since previous tracing, T wave inversion now present latera lly DOCTOR: Osiel Arteaga Interpretating Date/Time 01/05/2017 14:20:06
[2017-01-05] MEDS ORDERED: REGADENOSON INJ 0.4 MG/5 ML SYR ONE (16:15)
--- NOTE | 2017-01-05 18:04 | RADRPT ---
EXAM DATE/TIME: 01/05/2017 15:51 [facility] COMPARISON: CHEST SINGLE AP, January 05, 2017, 7:21. INDICATIONS : Chest pain with dyspnea. Angina. DOSE: 25.4 mCi Tc99m Myoview at stress. 8.5 mCi Tc99m Myoview at rest. 0.4 mg Lexiscan STRESS SYMPTOMS: Chest pain and dyspnea. EJECTION FRACTION: 67% MEDICAL HISTORY : Hypertension. SURGICAL HISTORY : Tonsillectomy. Hernia and partial kidney removal. ENCOUNTER: Initial ACUITY: 1 day PAIN SCALE: 5/10 LOCATION: Substernal chest TECHNIQUE: The patient underwent pharmacologic stress with infusion of prescribed dose. Continuous ECG tracing was monitored during stress. Gated SPECT imaging was performed after stress and conventional SPECT i maging was performed at rest. The examination was performed on a SPECT/CT scanner, both attenuation and non-corrected datasets were reviewed. FINDINGS: DISTRIBUTION: The maximum perfused segment at stress is in the lateral wall. PERFUSION STUDY: The pattern of perfusion at stress is within normal limits. GATED STUDY: There is intact wall motion and thickening without hypokinetic or dyskinetic segments. CONCLUSION: No reversible perfusion defects. No focal wall motion abnormalities. RISK CATEGORY: 1- Low Risk Fiasal Meneses MD on January 05, 2017 at 18:00 Board Certified Radiologist. This report was verified electronically.
[2017-01-05] MEDS ORDERED: ALPRAZolam 0.5 MG TAB PO PRN (18:45)
[2017-01-05] MEDS: RAMIPRIL 5 MG CAP PO SCH (20:48)
[2017-01-05] MEDS: SODIUM CHLORIDE 0.9% FLUSH 10 ML FLUSH IV FLUSH SCH (20:48)
--- NOTE | 2017-01-05 22:24 | EKG ---
Date Performed: 01/05/2017 Time Performed: 06:40:23 PTAGE: 66 years EKG: SINUS TACHYCARDIA ST DEVIATION AND MODERATE T-WAVE ABNORMALITY, CONSIDER LATERAL ISCHEMIA A BNORMAL ECG INTERPRETATION BASED ON A DEFAULT AGE OF 40 YEARS PREVIOUS TRACING : 08/17/2016 19.54 DOCTOR: Junito Rashid Interpretating Date/Time 01/05/2017 22:23:26
[2017-01-06] VITALS: BP 129/79; PULSE 74; RESP 18; TEMP 98.8; O2SAT 98
[2017-01-06 04:21] VITALS: PULSE 70
[2017-01-06 05:04] VITALS: BP 140/64; PULSE 72; RESP 18; TEMP 98.8; O2SAT 98
[2017-01-06 07:15] VITALS: BP 130/65; PULSE 80; RESP 16; TEMP 98.4; O2SAT 98
[2017-01-06 08:00] VITALS: PULSE 76
--- NOTE | 2017-01-06 08:23 | HHI.DCPOC ---
Discharge Care Plan Diagnosis: (1) Atypical chest pain (2) Anxiety (3) Situational stress Goals to Promote Your Health * To prevent worsening of your condition and complications * To maintain your health at the optimal level Directions to Meet Your Goals Take your medications as prescribed Follow your dietary instruction Follow activity as directed Keep your appointments as scheduled Take your immunizations and boosters as scheduled If your symptoms worsen call your PCP, if no PCP go to Urgent Care Center or Emergency Room Smoking is Dangerous to Your Health. Avoid second hand smoke Call the 24-hour hour crisis hotline for domestic abuse at Katey Powell Jan 06, 2017 08:22
[2017-01-06] MEDS: RAMIPRIL 5 MG CAP PO SCH (08:39)
[2017-01-06] MEDS: SODIUM CHLORIDE 0.9% FLUSH 10 ML FLUSH IV FLUSH SCH (08:40)
[2017-01-06] MEDS ORDERED: MELOXICAM 7.5 MG TAB PO SCH (09:00)
[2017-01-06] MEDS ORDERED: ASPIRIN 325 MG TAB PO SCH (09:00)
[2017-01-06] MEDS ORDERED: amLODIPine BESYLATE 5 MG TAB PO SCH (09:00)
--- NOTE | 2017-01-06 11:07 | TR ---
Date Performed: 01/05/2017 Time Performed: 16:27:03 DOCTOR: Oleg Sarabia DRUG LIST: CLINICAL HISTORY: CHEST PAIN REASON FOR TEST: CHEST PAIN REASON FOR ENDING: OBSERVATION: CONCLUSION: Lexiscan stress test was performed under standard four minute protocol. Radionuclide was injected one minute prior to ending the test. Developed dyspnea and chest pain, systolic blood p ressure was mildly elevated. No electrocardiographic abnormalities were present to suggest ischemia. Recovery was quick and uneventful with resolution of symptoms, systolic blood pressure improved but r emained slightly elevated. Nuclear imaging and interpretation are pending. COMMENTS:
== END 2017-01-06 10:19 | disposition home or self-care (01) ==
LOC: NEPC 06:20 → NEDA 09:35 → NEPFCDU 11:22
PROVIDERS: ADMIT Internal Medicine Cardiovascular Disease; ATTEND Internal Medicine Cardiovascular Disease
DX: R07.9 Chest pain, unspecified (principal); R00.2 Palpitations; R06.02 Shortness of breath; I10 Essential (primary) hypertension; M19.90 Unspecified osteoarthritis, unspecified site; F41.9 Anxiety disorder, unspecified; Z79.899 Other long term (current) drug therapy; Z87.891 Personal history of nicotine dependence; Z85.528 Personal history of other malignant neoplasm of kidney; M54.2 Cervicalgia; G89.29 Other chronic pain
CPT/HCPCS: 71010; 78452; 80048; 82550; 83735; 84484; 85025; 85379; 85610; 85730; 93005; 93017; 96374; 99285; A9502; G0378; J2785; J7040